=== PATIENT | female | born 1940 | race Caucasian/White ===

== ENCOUNTER 2023-01-11 16:26 | Outpatient (CLI) | payer MEDICARE | END 2023-01-11 23:59 | disposition critical access hospital (66) | LOC: EMS 16:26 | DX: R55 Syncope and collapse (principal); R68.83 Chills (without fever); R11.2 Nausea with vomiting, unspecified; R06.89 Other abnormalities of breathing | CPT/HCPCS: A0425; A0427 ==

== ENCOUNTER 2023-01-11 16:46 | Emergency (ER) | payer MEDICARE ==
[2023-01-11] MEDS ORDERED: SODIUM CHLORIDE 0.9% 1,000 ML IV STA (16:57)
[2023-01-11] MEDS ORDERED: iohexoL-300 100 ML VIAL ONE (17:00)
[2023-01-11 17:02] LABS: BASOPHILS # (AUTO) 0.1 10^3/uL (0.0-0.1); EOSINOPHILS # (AUTO) 0.1 10^3/uL (0.0-0.7); EOSINOPHILS % (AUTO) 1.2 %; HCT - HEMATOCRIT 34.5 % (37.0-47.0); HGB - HEMOGLOBIN 10.9 g/dL (12.0-16.0); LYMPHOCYTES # (AUTO) 1.6 10^3/uL (1.5-3.5); LYMPHOCYTES % (AUTO) 15.6 %; MEAN CORPUSCULAR HEMOGLOBIN 24.5 pg (27.0-31.0); MEAN CORPUSCULAR HGB CONC 31.6 g/dL (32.0-36.0); MEAN CORPUSCULAR VOLUME 77.7 fL (81.0-99.0); MEAN PLATELET VOLUME 10.9 fL (7.9-10.8); MONOCYTES # (AUTO) 0.5 10^3/uL (0.0-1.0); NEUTROPHILS # (AUTO) 8.1 10^3/uL (1.5-6.6); NEUTROPHILS % (AUTO) 76.9 %; PLT - PLATELET COUNT 410 10^3/uL (130-450); RED BLOOD COUNT 4.44 10^6/uL (4.20-5.40); RED CELL DISTRIBUTION WIDTH 16.6 % (12.0-15.0); WHITE BLOOD COUNT 10.5 x10^3/uL (4.8-10.8)
--- NOTE | 2023-01-11 17:03 | ED Physician Documentation ---
PD HPI SYNCOPE - Stated complaint Stated Complaint: SYNCOPE - Chief complaint Chief Complaint: Neuro - History obtained from History obtained from: Patient, EMS - History of Present Illness Witnessed: Witnessed Pain level max: 0 Pain level now: 0 - Additional information Additional information: 82-year-old female was at home today when she went to stand up off of the toilet, felt lightheaded, dizzy and had a syncopal versus near syncopal event. Her caregiver helped her to the ground. No injury. Patient has had constipation and decreased oral intake recently. She has had nausea and vomiting recently as well. She does take Plavix. Had a ground-level fall a few days ago. No fevers. No chills. No urinary symptoms. The syncope versus near syncope was after attempting to have a bowel movement. No chest pain. No shortness of breath. No palpitations. Was reportedly hypotensive initially Review of Systems Constitutional: denies: Fever, Chills Cardiac: denies: Chest pain / pressure, Palpitations Respiratory: denies: Dyspnea, Cough GI: reports: Nausea, Vomiting, Constipation. denies: Abdominal Pain, Diarrhea Skin: denies: Rash Musculoskeletal: denies: Neck pain, Back pain Neurologic: denies: Headache PD PAST MEDICAL HISTORY - Past Medical History Past Medical History: Yes Cardiovascular: Hypertension - Allergies Allergies/Adverse Reactions: Allergies Allergy/AdvReac Type Severity Reaction Status Date / Time acyclovir Allergy Unknown Verified 01/11/23 16:52 - Living Situation Living Arrangement: reports: At home - Social History Does the pt have substance abuse?: No - Family History Family history: reports: Non contributory PD ED PE NORMAL - Vitals Vital signs reviewed: Yes - General General: Alert and oriented X 3, No acute distress, Well developed/nourished - HEENT HEENT: Atraumatic, PERRL, Moist mucous membranes - Neck Neck: Supple, no meningeal sign, No bony TTP, No JVD, No bruit - Cardiac Cardiac: RRR, Strong equal pulses - Respiratory Respiratory: No respiratory distress, Clear bilaterally - Abdomen Abdomen: Soft, Non tender, Non distended - Back Back: No CVA TTP, No spinal TTP - Derm Derm: Warm and dry, No rash - Extremities Extremities: No deformity, No edema, No calf tenderness / cord - Neuro Neuro: Alert and oriented X 3, bobbin handler 2-12 intact, No motor deficit, No sensory deficit, Normal speech Eye Opening: Spontaneous Motor: Obeys Commands Verbal: Oriented GCS Score: 15 - Psych Psych: Normal mood, Normal affect Results - Vitals Vitals: Vital Signs - 24 hr 01/11/23 01/11/23 01/11/23 16:52 16:59 17:29 Temperature 36.5 C 36.5 C Heart Rate 64 64 90 Respiratory 24 22 24 Rate Blood Pressure 151/55 H 151/55 H 148/80 H O2 Saturation 100 100 100 01/11/23 01/11/23 01/11/23 17:30 18:00 18:30 Temperature Heart Rate 94 92 96 Respiratory 22 20 24 Rate Blood Pressure 148/80 H 140/82 H 166/78 H O2 Saturation 100 98 100 01/11/23 01/11/23 01/11/23 19:00 19:30 20:00 Temperature 36.8 C Heart Rate 88 90 90 Respiratory 16 24 22 Rate Blood Pressure 150/90 H 140/88 H 132/90 H O2 Saturation 98 100 100 01/11/23 20:30 Temperature Heart Rate 94 Respiratory 24 Rate Blood Pressure 150/86 H O2 Saturation 100 Oxygen O2 Source Room air - EKG (time done) 1651 EKG releavant findings:: EKG personally interpreted by author of this note. Relevant findings are: Rate: Rate (enter#) (100) Rhythm: NSR, Other (PAC) Percival: Normal Intervals: Normal MD QRS: Normal Ischemia: T wave inversion (II, III, avf, v4-6) - Labs Labs: Laboratory Tests 01/11/23 01/11/23 01/11/23 16:56 16:56 16:56 WBC 10.5 RBC 4.44 Hgb 10.9 L Hct 34.5 L MCV 77.7 L MCH 24.5 L MCHC 31.6 L RDW 16.6 H Plt Count 410 MPV 10.9 H Neut # (Auto) 8.1 H Lymph # (Auto) 1.6 Butler # (Auto) 0.5 Eos # (Auto) 0.1 Baso # (Auto) 0.1 Absolute Nucleated RBC 0.00 Nucleated RBC % 0.0 Sodium 134 L Potassium 3.8 Chloride 101 Carbon Dioxide 19 L Anion Gap 14.0 H BUN 50 H Creatinine 3.0 H Estimated GFR (MDRD) 15 L Glucose 252 H Calcium 10.1 Total Bilirubin 0.7 AST 15 ALT 10 Alkaline Phosphatase 110 Troponin I High Sens 12.1 Total Protein 7.8 Albumin 4.0 Globulin 3.8 Albumin/Globulin Ratio 1.1 Lipase 25 - Rads (name of study) Chest x-ray Relevant Findings:: Final report received, See rad report Head CT Relevant Findings:: Final report received, See rad report CT abdomen pelvis Relevant Findings:: Final report received, See rad report PD Medical Decision Making - ED course Complexity details: reviewed results, re-evaluated patient, considered differential, d/w patient ED course: Patient with a syncopal event after getting up off the toilet today. She had had nausea and vomiting as well. She did strike her head a few days ago. Head CT does not show any acute abnormalities. Chest x-ray does not show any acute abnormalities. The head CT does show right maxillary sinus opacification. Patient has no signs of sinus infection currently. We will have her follow-up with her doctor for this. Her CT of the abdomen pelvis showed a large amount of fecal material in the distal colon. She was given 2 enemas with a large bowel movement. She states that she feels much better. She also received IV fluids. She is not lightheaded or dizzy. Able to stand and walk without difficulty. No recurrent hypotension. Appears that her earlier syncope versus near syncope was likely vasovagal. No evidence of arrhythmia or cardiac abnormality. Patient counseled regarding signs and symptoms for which I believe and urgent re- evaluation would be necessary. Patient with good understanding of and agreement to plan and is comfortable going home at this time This document was made in part using voice recognition software. While efforts are made to proofread this document, sound alike and grammatical errors may occur. Departure - Departure Disposition: 01 Home, Self Care Clinical Impression: Dehydration, Vasovagal syncope Constipation Qualifiers: Constipation type: unspecified constipation type Qualified Code(s): K59.00 - Constipation, unspecified Condition: Good Instructions: ED Constipation, ED Syncope Vasovagal Follow-Up: your,doctor in 1 week [Other] Comments: Please follow-up with your doctor for further care. Please return if you worsen. You were given 2 enemas tonight and had a large bowel movement. It appears that you have what we call vasovagal syncope, this can cause your blood pressure to drop causing you to pass out. Your head CT does not show any acute abnormalities, but you do have fluid in your right maxillary sinus, this can be followed up with your doctor. Your CT of the abdomen and pelvis shows a large hiatal hernia, atherosclerotic vascular disease and you had a large amount of fecal material in the distal colon and rectum. PROCEDURE: ABDOMEN/PELVIS WO INDICATIONS: vomiting TECHNIQUE: A CT scan of the abdomen and pelvis was performed without the use of intravenous contrast. Images were recorded and evaluated at appropriate window settings. Reformats: coronal and sagittal. For radiation dose reduction, the following was used: automated exposure control, adjustment of mA and/or kV according to patient size. COMPARISON: None. FINDINGS: Image quality: Diagnostic. Lung bases and heart: Mild bibasilar atelectasis more pronounced in the right. Large hiatal hernia. Heart size is normal. Trace pericardial effusion. Moderate atherosclerotic vascular calcifications of the coronary arteries. Liver: No solid mass. Gallbladder and biliary tree: Gallbladder appears unremarkable. No biliary ductal dilatation. Spleen: No splenomegaly. Pancreas: No pancreatic ductal dilation. No peripancreatic inflammation. Adrenals: No adrenal nodule. Kidneys and ureters: No hydronephrosis. No renal cystic lesion which requires follow up. No solid mass. No evidence for urolithiasis. No ureteral stones. Bowel and peritoneum: No bowel distension. No pathologic free fluid. Large amount of fecal material noted in the distal colon and rectum. Otherwise, no evidence for bowel obstruction identified. Lymph nodes: No central or retroperitoneal adenopathy. Vessels: No infrarenal aortic aneurysm. Moderate atherosclerotic vascular calcifications. PELVIS Reproductive organs: Unremarkable. Bladder: No wall thickness, accounting for underdistention. Pelvic lymph nodes: No pelvic adenopathy by size criteria. Bones: No aggressive osseous abnormality. Status post right total hip arthroplasty. Streak artifact from metallic hardware obscures visualization of the right lower pelvis. No acute compression fracture. Other: No significant ventral or inguinal hernia. IMPRESSION: No hydronephrosis or obstructing renal stone. Large amount of fecal material seen in the distal colon and rectum. Otherwise, no evidence for obstruction. Large hiatal hernia. Moderate atherosclerotic vascular disease. PROCEDURE: CT brain without contrast INDICATIONS: fall, head injury, vomiting TECHNIQUE: Noncontrast 4.5 mm thick angled axial sections acquired from the foramen magnum to the vertex. For radiation dose reduction, the following was used: automated exposure control, adjustment of mA and/or kV according to patient size. COMPARISON: None. FINDINGS: Image quality: Excellent. CSF spaces: Basal cisterns are patent. No extra-axial fluid collections. Ventricles are normal in size and shape. Brain: No midline shift. No intracranial masses or hemorrhage. Reyes-white matter interface is normal. Atrophy and white matter chronic ischemic change. Atherosclerotic vascular calcification noted in the cavernous segments of both ICA Skull and face: Calvarium and visualized facial bones are intact, without suspicious lesions. Bilateral intraocular lens replacements noted. Sinuses: Near complete right maxillary sinus opacification. Both mastoids are clear IMPRESSION: Atrophy and chronic ischemic change without intracranial hemorrhage or mass effect Right maxillary sinus near complete opacification with air-fluid level
[2023-01-11 17:15] LABS: ALBUMIN/GLOBULIN RATIO 1.1 (1.0-2.2); BILIRUBIN,TOTAL 0.7 mg/dL (0.2-1.0); CALCIUM 10.1 mg/dL (8.5-10.3); POTASSIUM 3.8 mmol/L (3.5-5.0); TOTAL PROTEIN 7.8 g/dL (6.7-8.2)
--- NOTE | 2023-01-11 17:56 | CT Report ---
PROCEDURE: CT brain without contrast INDICATIONS: fall, head injury, vomiting TECHNIQUE: Noncontrast 4.5 mm thick angled axial sections acquired from the foramen magnum to the vertex. For r adiation dose reduction, the following was used: automated exposure control, adjustment of mA and/or kV according to patient size. COMPARISON: None. FINDINGS: Image quality: Excellent. CSF spaces: Basal cisterns are patent. No extra-axial fluid collections. Ventricles are normal in size and shape. Brain: No midline shift. No intracranial masses or hemorrhage. Reyes-white matter interface is norm al. Atrophy and white matter chronic ischemic change. Atherosclerotic vascular calcification noted i n the cavernous segments of both ICA Skull and face: Calvarium and visualized facial bones are intact, without suspicious lesions. Bilat eral intraocular lens replacements noted. Sinuses: Near complete right maxillary sinus opacification. Both mastoids are clear IMPRESSION: Atrophy and chronic ischemic change without intracranial hemorrhage or mass effect Right maxillary sinus near complete opacification with air-fluid level Reviewed by: Ruslan Hansen MD on 01/11/2023 4:54 PM [email or web address] Approved by: Ruslan Hansen MD on 01/11/2023 4:54 PM AKDT Station ID: [id number]
--- NOTE | 2023-01-11 18:20 | XRAY Report ---
PROCEDURE: Chest 1 View X-Ray INDICATIONS: syncope TECHNIQUE: One view of the chest was acquired. COMPARISON: None. FINDINGS: Surgical changes and devices: None. Lungs and pleura: Mild hyperaeration. No consolidation. No pneumothorax or pleural effusion. Mild fl attening of the bilateral hemidiaphragms. Mediastinum: Mediastinal contours appear normal. Heart size is normal. Bones and chest wall: No suspicious bony lesions. Overlying soft tissues appear unremarkable. IMPRESSION: No acute cardiopulmonary process. 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 No focal consolidation. Reviewed by: Maulik De La Rosa MD on 01/11/2023 6:18 PM PDT Approved by: Maulik De La Rosa MD on 01/11/2023 6:18 PM PDT Station ID: [id number]
--- NOTE | 2023-01-11 18:27 | CT Report ---
PROCEDURE: ABDOMEN/PELVIS WO INDICATIONS: vomiting TECHNIQUE: A CT scan of the abdomen and pelvis was performed without the use of intravenous contrast. Images we re recorded and evaluated at appropriate window settings. Reformats: coronal and sagittal. For radiat ion dose reduction, the following was used: automated exposure control, adjustment of mA and/or kV ac cording to patient size. COMPARISON: None. FINDINGS: Image quality: Diagnostic. Lung bases and heart: Mild bibasilar atelectasis more pronounced in the right. Large hiatal hernia. H eart size is normal. Trace pericardial effusion. Moderate atherosclerotic vascular calcifications of the coronary arteries. Liver: No solid mass. Gallbladder and biliary tree: Gallbladder appears unremarkable. No biliary ductal dilatation. Spleen: No splenomegaly. Pancreas: No pancreatic ductal dilation. No peripancreatic inflammation. Adrenals: No adrenal nodule. Kidneys and ureters: No hydronephrosis. No renal cystic lesion which requires follow up. No solid mas s. No evidence for urolithiasis. No ureteral stones. Bowel and peritoneum: No bowel distension. No pathologic free fluid. Large amount of fecal material n oted in the distal colon and rectum. Otherwise, no evidence for bowel obstruction identified. Lymph nodes: No central or retroperitoneal adenopathy. Vessels: No infrarenal aortic aneurysm. Moderate atherosclerotic vascular calcifications. PELVIS Reproductive organs: Unremarkable. Bladder: No wall thickness, accounting for underdistention. Pelvic lymph nodes: No pelvic adenopathy by size criteria. Bones: No aggressive osseous abnormality. Status post right total hip arthroplasty. Streak artifact f rom metallic hardware obscures visualization of the right lower pelvis. No acute compression fracture . Other: No significant ventral or inguinal hernia. IMPRESSION: No hydronephrosis or obstructing renal stone. Large amount of fecal material seen in the distal colon and rectum. Otherwise, no evidence for obstru ction. Large hiatal hernia. Moderate atherosclerotic vascular disease. Reviewed by: Maulik De La Rosa MD on 01/11/2023 6:26 PM PDT Approved by: Maulik De La Rosa MD on 01/11/2023 6:26 PM PDT Station ID: [id number]
[2023-01-11] MEDS ORDERED: MINERAL OIL ENEMA 133 ML BOTTLE RC STA (18:32)
[2023-01-11] MEDS ORDERED: SALINE ENEMA 133 ML BOTTLE RC STA (19:33)
[2023-01-11 23:40] VITALS: BP 168/70
== END 2023-01-11 23:39 | disposition home or self-care (01) ==
LOC: EDUNIT# → ED 16:46
DX: E86.0 Dehydration (principal); R55 Syncope and collapse; I10 Essential (primary) hypertension
CPT/HCPCS: 36415; 70450; 71045; 74176; 80053; 83690; 84484; 85025; 93005; 99284; A9270